=== PATIENT | female | born 1980 | race Caucasian/White ===

== ENCOUNTER 2017-02-09 14:30 | Emergency (ER) | payer OTHER ==
[~2017-02-09] VITALS: Ht 180.3 cm; Wt 102.0 kg
[2017-02-09 14:48] VITALS: BP 173/105
== END 2017-02-09 15:31 | disposition home or self-care (01) ==
LOC: ED 15:25
DX: S00.31XA Abrasion of nose, initial encounter (principal); L03.211 Cellulitis of face; W19.XXXA Unspecified fall, initial encounter; Y93.89 Activity, other specified; Y92.89 Other specified places as the place of occurrence of the external cause; Y99.8 Other external cause status
CPT/HCPCS: 99283